=== PATIENT | female | born 1940 | race Caucasian/White ===

== ENCOUNTER 2017-02-11 13:00 | Inpatient (IN) | payer MEDICARE ==
[2017-02-18] MEDS ORDERED: Vancomycin HCl 1.5 GM in Sodium Chloride 0.9% 250 ML 300 ML IVPB SCH (06:00)
[2017-02-18] MEDS ORDERED: Fentanyl 100 MCG/2 ML VIAL ONE ×2 (06:28→09:17)
[2017-02-18] MEDS ORDERED: Lidocaine 1% (PF) 30 ML VIAL ONE (06:28)
[2017-02-18] MEDS ORDERED: Midazolam HCl 2 mg/2 ml Vial ONE (06:28)
[2017-02-18] MEDS ORDERED: Bupivacaine HCl 0.5%/Epinephrine 1:200,000/PF 30 ml Vial ONE (06:34)
[2017-02-18] MEDS ORDERED: MONTELUKAST SODIUM 10 MG PO PRN (06:53)
[2017-02-18] MEDS ORDERED: Allopurinol 100 MG TAB PO PRN (06:53)
[2017-02-18] MEDS ORDERED: Promethazine HCl 25 MG/ML VIAL IM PRN ×3 (06:54→09:03)
[2017-02-18] MEDS ORDERED: diphenhydrAMINE HCl 25 MG CAP PO PRN (06:54)
[2017-02-18] MEDS ORDERED: traMADol HCl 50 MG TAB PO PRN ×3 (06:54→07:00)
[2017-02-18] MEDS ORDERED: Fentanyl 100 MCG/2 ML VIAL SLOW IVP PRN ×2 (06:54)
[2017-02-18] MEDS ORDERED: Ondansetron HCl/PF 4 MG/2 ML Vial IVP PRN ×3 (06:54→09:03)
[2017-02-18] MEDS ORDERED: Acetaminophen 325 MG TAB PO PRN (06:54)
[2017-02-18] MEDS ORDERED: HYDROcodone/Acetaminophen 10/325 mg Tablet PO PRN ×3 (06:54→07:00)
[2017-02-18] MEDS ORDERED: Zolpidem Tartrate 5 MG TAB PO PRN ×2 (06:54→07:00)
[2017-02-18] MEDS ORDERED: Fentanyl 100 MCG/2 ML VIAL IV PRN (07:00)
[2017-02-18] MEDS ORDERED: Tranexamic Acid 1,000 MG in Sodium Chloride 0.9% 100 ML IVPB SCH (07:00)
[2017-02-18] MEDS ORDERED: Ropivacaine 0.2% 550 ML 550 ML NERVE BLCK SCH (07:00)
[2017-02-18] MEDS ORDERED: Montelukast Sodium 10 mg Tablet PO PRN (07:07)
[2017-02-18] MEDS ORDERED: Sodium Chloride 0.9% 100 ML ONE (08:24)
[2017-02-18] MEDS ORDERED: Dexamethasone 20 MG/5 ML VIAL ONE (08:24)
[2017-02-18] MEDS ORDERED: Ondansetron HCl/PF 4 MG/2 ML Vial ONE (08:24)
[2017-02-18] MEDS ORDERED: Ketorolac Tromethamine 30 MG/ML VIAL ONE (08:54)
[2017-02-18] MEDS ORDERED: Non-Formulary Item 1 EACH (Ranitidine Hcl [Ranitidine Hcl] 150 MG) PO SCH (09:00)
[2017-02-18] MEDS ORDERED: Bisoprolol Fumarate/HCTZ 10 mg/6.25 mg Tablet PO SCH (09:00)
[2017-02-18] MEDS ORDERED: AMLOD PO SCH (09:00)
[2017-02-18] MEDS ORDERED: [UNRECOGNIZED DRUG - OTHER] PO SCH (09:00)
[2017-02-18] MEDS ORDERED: Promethazine HCl 25 MG/ML VIAL SLOW IVP PRN (09:03)
[2017-02-18] MEDS: Aspirin 325 MG TAB PO SCH ×2 (09:35→20:58)
[2017-02-18] MEDS: Famotidine 20 MG TAB PO SCH (09:35)
[2017-02-18] MEDS: Ferrous Gluconate 324 MG TAB PO SCH ×2 (10:14→20:58)
[2017-02-18] MEDS: Multivitamin W/ Minerals 1 TAB PO SCH (10:14)
[2017-02-18] MEDS: Senokot S 8.6-50 MG TAB PO SCH ×2 (10:14→20:58)
--- NOTE | 2017-02-18 10:36 | RAD ---
TWO VIEWS LEFT KNEE: Comparison: None. History: Status post left knee arthroplasty. FINDINGS: Two views of the left knee shows the patient to be status post left knee arthroplasty without periha rdware lucency of fracture. Air in the soft tissues is from recent surgery. IMPRESSION: Status post left knee arthroplasty without evidence of complication. POS: [facility]
--- NOTE | 2017-02-18 11:25 | OP ---
DATE OF PROCEDURE: 02/18/2017 PREOPERATIVE DIAGNOSIS: End-stage tricompartmental osteoarthritis, left knee. POSTOPERATIVE DIAGNOSIS: End-stage tricompartmental osteoarthritis, left knee. OPERATIVE PROCEDURE: Cemented cruciate-sparing computer-assisted navigation left total knee arthrop lasty. SURGEON: Burt Crain M.D. ADVANCED MANUFACTURING ENGINEER: Herve Figueroa PA-C. ANESTHESIA: General via laryngeal mask airway augmented with indwelling adductor canal block with a single shot sciatic block and local infiltration of Marcaine. COMPONENTS USED: [employer] Triathlon primary size 3 cemented cruciate-sparing femoral com ponent, size 3 primary cemented tibial component, 11 mm polyethylene fixed bearing insert, and a 27 mm patellar button. TOURNIQUET TIME: 51 minutes at 300 mmHg. ESTIMATED BLOOD LOSS: Less than 100. FINDINGS: End-stage severe degenerative tricompartmental disease, bone on bone arthrosis, periartic ular osteophyte formation, large serous effusion, hypertrophic synovium, and changes consistent with degenerative genu varum. DRAINS: None. SPECIMENS: None. COMPLICATIONS: None. COUNTS: Correct. INDICATIONS FOR SURGERY: Ms. Leonard is a 76-year-old white female who has had progressive left knee pain amplified with standing and walking for the last 5-7 years. She has failed conservative manage ment and elected to proceed with total knee arthroplasty as definitive treatment of her pain. PROCEDURE IN DETAIL: After informed consent was obtained in the preoperative holding area. The pat ient was taken to the operative suite where general anesthesia was induced. Once adequate level of general anesthesia was obtained, the patient was positioned and a well-padded tourniquet was placed around the left proximal thigh. The left lower extremity was then prepped and draped in the usual s terile fashion. Prior to exsanguination, a time out was called and all members of the surgical team agreed upon site, surgeon, and patient. The extremity was then exsanguinated and the tourniquet wa s raised. A midline longitudinal incision was then made directly over the patella extending two fin gerbreadths above the superior pole of the patella and two fingerbreadths inferior to the inferior p atellar pole of the patella. Deeper subcutaneous layers were dissected sharply and local bleeding w as controlled with Bovie electrocautery. A quad tendon longitudinal split was then made sharply and a median parapatellar arthrotomy was carried out both sharp and with Bovie electrocautery, carried down to one fingerbreadth medial to the tibial tubercle. The knee was then placed into flexion and the patella was everted nicely, and a copious fat pad ectomy was performed allowing for greater expo sure of the tibia. The computer-assisted distal femoral fiducial was then placed and pinned firmly, and the distal femoral cutting guide was pinned firmly into place. The oscillating saw was then us ed to remove the appropriate amount of bone. The 4-in-1 cutting block was then placed on the distal femur and the oscillating saw was used to remove the appropriate amount of bone off of the anterior , posterior, and chamfer cuts. After completion of bone cuts, the anterior cruciate ligament was re sected sharply and the posterior cruciate ligament retractor was placed and the tibia was subluxed f or better exposure. Partial meniscectomies were carried out, and the tibial computer-assisted fiduc ial was pinned, and the cutting guide was placed. Oscillating saw was then used to remove the bone with Hohmann retractors used to take care and protect the collateral ligaments. After the tibial re section was performed, a laminar television script writer was placed in between the freshened bone cuts. The knee p laced at 90 degrees and further bilateral meniscectomies were carried out, and the curved osteotome and curettage was used to remove any excess bone spurs in the posterior compartment. The trial femo ral component, tibial baseplate were placed with the appropriate polyethylene trial insert with an a ppropriate polyethylene spacer and patellar button. The knee was taken through full range of motion with flexion and extension from 0-90 degrees and patellar broach squarely in the trochlea without a ny squinting or subluxation noted. The knee was also stable to varus and valgus stressing at 0, 15, 45, and 90 degrees of flexion. The drawer was negative. All trial components were then removed an d the keel punch was used to provide the appropriate defect in the tibia with a mallet. The freshen ed bone cuts were copiously irrigated with pulsatile lavage of about 1-1/2 liters to remove all exce ss debris. The freshened bone cuts were then dried and with suction and lap sponge. The knee was p laced in flexion and retractors were placed to provide access to all bone cuts. Tobramycin impregna barb methyl methacrylate cement was then placed on the freshened bone cuts and implants which were ma lleted firmly into place. Curettage and Tingley elevators were used to remove any excess bone cement. The knee was placed into full extension and the patellar button was placed under compression, and the cement was allowed to cure. Once completed, the components were again taken through full range of motion and copious irrigation of the knee was carried out with another liter of normal saline. A ll components were inspected fully with full range of motion and varus and valgus stressing. There was no laxity noted and full extension was observed clinically. Primary closure was accomplished wi th #2 interrupted Vicryl stitch of the arthrotomy defect. This was oversewn with a #2 running Quill barbed stitch. The subcutaneous layer was then closed with a running 0 barbed Monocryl stitch and skin closure accomplished with a running subcuticular 3-0 Monocryl barbed Quill stitch and augmented with cement on the skin. Tourniquet was lowered. Good spontaneous return of distal pulses was not ed clinically and a sterile dressing was applied to the incision. The procedure was terminated with out any complications. The patient was awakened in the operative suite and taken to the recovery ro om in stable condition.
[2017-02-18] MEDS: Bisoprolol Fumarate/HCTZ 10 mg/6.25 mg Tablet PO SCH (13:59)
[2017-02-18] MEDS ORDERED: Ketorolac Tromethamine 30 MG/ML VIAL IM SCH (14:00)
--- NOTE | 2017-02-18 14:30 | PDOC.PN ---
- Subjective Encounter Start Date: 02/18/17 Encounter Start Time: 14:00 Pt seen for management of medical comorbidities, including hypertension. Denies chest pain, shortness of breath, fevers or chills. - Objective MAR Reviewed: Yes Vital Signs & Weight: Vital Signs (12 hours) Temp Pulse Resp BP Pulse Ox 02/18/17 09:35 97.5 F L 67 18 131/76 98 Weight Weight 200 lb Phys Exam - Physical Examination Obese HEENT: moist MMs, oral pharynx no lesions Neck: supple, full ROM Respiratory: no wheezing, no rales, no rhonchi, clear to auscultation bilateral Cardiovascular: RRR, no rub Gastrointestinal: soft, positive bowel sounds Musculoskeletal: pulses present s/p L knee surgery Neurological: moves all 4 limbs Psychiatric: normal affect Skin: no rash Dx/Plan (1) Hypertension Code(s): I10 - ESSENTIAL (PRIMARY) HYPERTENSION Status: Chronic (2) Dyslipidemia Code(s): E78.5 - HYPERLIPIDEMIA, UNSPECIFIED Status: Chronic (3) Gout Code(s): M10.9 - GOUT, UNSPECIFIED Status: Chronic - Plan * . Monitor vital signs, titrate antihypertensives as needed. Continue statin. Gout stable. s/p L TKR DVT prophylaxis and pain management per orthopedic surgery service. Code status: Full Review of Systems - Review of Systems Respiratory: negative: Cough, Dry, Shortness of Breath, Hemoptysis, SOB with Excertion, Pleuritic Pain, Sputum, Wheezing Cardiovascular: negative: Chest Pain, Palpitations, Orthopnea, Paroxysmal Noc. Dyspnea, Edema, Light Headedness Gastrointestinal: negative: Nausea, Vomiting, Abdominal Pain, Diarrhea, Constipation, Melena, Hematochezia - Medications/Allergies Allergies/Adverse Reactions: Allergies Allergy/AdvReac Type Severity Reaction Status Date / Time Sulfa (Sulfonamide Allergy Hives Verified 02/11/17 14:18 Antibiotics) Medications: Current Medications Acetaminophen (Tylenol) 650 mg PO Q4H PRN PRN Reason: [place]/ T > 101F; Mild Pain (1-3) Hydrocodone Bitart/Acetaminophen ([place] 10/325) 1 tab PO Q4H PRN PRN Reason: Pain (1-3) Hydrocodone Bitart/Acetaminophen ([place] 10/325) 2 tab PO Q4H PRN PRN Reason: PAIN (4-6) Allopurinol (Zyloprim) 100 mg PO ASDIR PRN PRN Reason: GOUT Aspirin (Aspirin) 325 mg PO BID [facility] Last Admin: 02/18/17 09:35 Dose: Not Given Atorvastatin Calcium (Lipitor) 20 mg PO HS [facility] Bisoprolol Fumarate/HCTZ (Ziac 10-6.25) 0.5 tab PO QAM [facility] Last Admin: 02/18/17 13:59 Dose: Not Given Cefazolin Sodium (Ancef) 2 gm SLOW IVP 1500,2300 [facility] Stop: 02/18/17 23:01 Diphenhydramine HCl (Benadryl) 25 mg PO Q6H PRN PRN Reason: Itching Doxazosin Mesylate (Cardura) 4 mg PO HS [facility] Famotidine (Pepcid) 20 mg PO QAM [facility] Last Admin: 02/18/17 09:35 Dose: Not Given Fentanyl (Sublimaze) 50 mcg IV Q1H PRN PRN Reason: BREAKTHROUGH PAIN Last Admin: 02/18/17 12:12 Dose: 50 mcg Ferrous Gluconate (Fergon) 324 mg PO BID [facility] Last Admin: 02/18/17 10:14 Dose: Not Given Sodium Chloride (Normal Saline 0.9%) 1,000 mls @ 100 mls/hr IV .Q10H [facility] Tranexamic Acid 1,000 mg/ (Sodium Chloride) 110 mls @ 200 mls/hr IVPB ONE [facility] Stop: 02/18/17 21:00 Ropivacaine (Ropivacaine 0.2% 550 Ml) 550 mls @ 0 mls/hr NERVE BLCK INF [facility] PRN Reason: As Directed Iron/Minerals/Multivitamins (Theragran M) 1 tab PO DAILY [facility] Last Admin: 02/18/17 10:14 Dose: Not Given Ketorolac Tromethamine (Toradol) 15 mg IVP 0300,0900,1500,2100 [facility] Stop: 02/20/17 09:01 Montelukast Sodium (Singulair) 10 mg PO ASDIR PRN PRN Reason: Allergies Ondansetron HCl (Zofran) 4 mg IVP Q6H PRN PRN Reason: Nausea/Vomiting Pneumococcal Polyvalent Vaccine (Pneumovax 23) 0.5 ml IM .ONCE ONE Stop: 02/18/17 21:01 Promethazine HCl (Phenergan) 12.5 mg IM Q4H PRN PRN Reason: Nausea Senna/Docusate Sodium (Senokot S) 2 tab PO BID [facility] Last Admin: 02/18/17 10:14 Dose: Not Given Sodium Chloride (Flush - Normal Saline) 10 ml IVF PRN PRN PRN Reason: Saline Flush Tramadol HCl (Ultram) 50 mg PO Q6H PRN PRN Reason: Mild Pain (1-3) Tramadol HCl (Ultram) 100 mg PO Q6H PRN PRN Reason: Moderate Pain 4-6 Zolpidem Tartrate (Ambien) 5 mg PO HSPRN PRN PRN Reason: Insomnia
[2017-02-18] MEDS: Ketorolac Tromethamine 30 MG/ML VIAL IVP SCH ×2 (15:09→21:07)
[2017-02-18] MEDS: Sodium Chloride 0.9% 1,000 ML IV SCH ×2 (15:16→17:14)
[2017-02-18] MEDS: Atorvastatin Calcium 20 MG TAB PO SCH (20:57)
[2017-02-18] MEDS ORDERED: Doxazosin Mesylate 4 MG TAB PO SCH (21:00)
[2017-02-18] MEDS: Doxazosin Mesylate 4 MG TAB PO SCH (21:12)
[2017-02-19] MEDS: Sodium Chloride 0.9% 1,000 ML IV SCH ×3 (02:51→21:03)
[2017-02-19] MEDS: Ketorolac Tromethamine 30 MG/ML VIAL IVP SCH ×4 (04:01→16:35)
[2017-02-19 05:57] LABS: Hematocrit 35.3 % (36.0-47.0); Mean Platelet Volume 8.3 fL (7.4-10.4); White Blood Cell (WBC) Count 23.8 thou/uL (4.8-10.8)
[2017-02-19] MEDS: HYDROcodone/Acetaminophen 10/325 mg Tablet PO PRN ×3 (09:02→19:23)
[2017-02-19] MEDS: Ferrous Gluconate 324 MG TAB PO SCH ×2 (09:04→20:06)
[2017-02-19] MEDS: Multivitamin W/ Minerals 1 TAB PO SCH (09:05)
[2017-02-19] MEDS: Bisoprolol Fumarate/HCTZ 10 mg/6.25 mg Tablet PO SCH (09:05)
[2017-02-19] MEDS: Famotidine 20 MG TAB PO SCH (09:07)
[2017-02-19] MEDS: Aspirin 325 MG TAB PO SCH ×2 (09:07→20:06)
[2017-02-19] MEDS: Senokot S 8.6-50 MG TAB PO SCH ×2 (09:08→20:07)
--- NOTE | 2017-02-19 14:19 | PDOC.PN ---
- Subjective Encounter Start Date: 02/19/17 Encounter Start Time: 09:20 Pt seen for followup re; hypertension. Denies chest pain, shortness of breath, fevers or chills. No nausea or vomiting. No cough. Has gan catheter, denies dysuria or urge to urinate. - Objective MAR Reviewed: Yes Vital Signs & Weight: Vital Signs (12 hours) Temp Pulse Resp BP BP Pulse Ox 02/19/17 11:25 97.1 F L 56 L 14 130/58 L 93 L 02/19/17 08:00 97.1 F L 56 L 14 96 02/19/17 07:33 97.5 F L 62 18 126/74 96 02/19/17 04:52 97.4 F L 71 18 146/72 H 92 L Weight Admit Weight 200 lb Weight 200 lb I&O: 02/18/17 02/19/17 02/20/17 06:59 06:59 06:59 Intake Total 3106 Output Total 2450 Balance 656 Result Diagrams: 02/19/17 05:07 Phys Exam - Physical Examination Constitutional: NAD HEENT: moist MMs, oral pharynx no lesions Neck: supple, full ROM Respiratory: no wheezing, no rales, no rhonchi, clear to auscultation bilateral Cardiovascular: RRR, no rub Gastrointestinal: soft, positive bowel sounds Musculoskeletal: pulses present s/p L knee surgery Neurological: moves all 4 limbs Psychiatric: normal affect Dx/Plan (1) Hypertension Code(s): I10 - ESSENTIAL (PRIMARY) HYPERTENSION Status: Chronic (2) Dyslipidemia Code(s): E78.5 - HYPERLIPIDEMIA, UNSPECIFIED Status: Chronic (3) Gout Code(s): M10.9 - GOUT, UNSPECIFIED Status: Chronic - Plan * . Leucocytosis, but no signs of infection. Continue to monitor. Recheck CBC. Titrate antihypertensives as needed. Continue statin. Review of Systems - Review of Systems Constitutional: negative: Fever, Chills, Sweats, Weakness, Malaise Respiratory: negative: Cough, Dry, Shortness of Breath, Hemoptysis, SOB with Excertion, Pleuritic Pain, Sputum, Wheezing Cardiovascular: negative: Chest Pain, Palpitations, Orthopnea, Paroxysmal Noc. Dyspnea, Edema, Light Headedness, Other Genitourinary: negative: Dysuria, Frequency, Incontinence, Hematuria, Retention - Medications/Allergies Allergies/Adverse Reactions: Allergies Allergy/AdvReac Type Severity Reaction Status Date / Time Sulfa (Sulfonamide Allergy Hives Verified 02/11/17 14:18 Antibiotics) Medications: Current Medications Acetaminophen (Tylenol) 650 mg PO Q4H PRN PRN Reason: [place]/ T > 101F; Mild Pain (1-3) Hydrocodone Bitart/Acetaminophen ([place] 10/325) 1 tab PO Q4H PRN PRN Reason: Pain (1-3) Last Admin: 02/19/17 04:56 Dose: 1 tab Hydrocodone Bitart/Acetaminophen ([place] 10/325) 2 tab PO Q4H PRN PRN Reason: PAIN (4-6) Last Admin: 02/19/17 13:02 Dose: 2 tab Allopurinol (Zyloprim) 100 mg PO ASDIR PRN PRN Reason: GOUT Aspirin (Aspirin) 325 mg PO BID [facility] Last Admin: 02/19/17 09:07 Dose: 325 mg Atorvastatin Calcium (Lipitor) 20 mg PO [facility] Last Admin: 02/18/17 20:57 Dose: 20 mg Bisoprolol Fumarate/HCTZ (Ziac 10-6.25) 0.5 tab PO QAM [facility] Last Admin: 02/19/17 09:05 Dose: 0.5 tab Diphenhydramine HCl (Benadryl) 25 mg PO Q6H PRN PRN Reason: Itching Doxazosin Mesylate (Cardura) 4 mg PO [facility] Last Admin: 02/18/17 21:12 Dose: 4 mg Famotidine (Pepcid) 20 mg PO QAM [facility] Last Admin: 02/19/17 09:07 Dose: 20 mg Fentanyl (Sublimaze) 50 mcg IV Q1H PRN PRN Reason: BREAKTHROUGH PAIN Last Admin: 02/18/17 12:12 Dose: 50 mcg Ferrous Gluconate (Fergon) 324 mg PO BID [facility] Last Admin: 02/19/17 09:04 Dose: 324 mg Sodium Chloride (Normal Saline 0.9%) 1,000 mls @ 100 mls/hr IV .Q10H [facility] Last Admin: 02/19/17 13:08 Dose: Not Given Ropivacaine (Ropivacaine 0.2% 550 Ml) 550 mls @ 0 mls/hr NERVE BLCK INF [facility] PRN Reason: As Directed Iron/Minerals/Multivitamins (Theragran M) 1 tab PO DAILY [facility] Last Admin: 02/19/17 09:05 Dose: 1 tab Ketorolac Tromethamine (Toradol) 15 mg IVP 0300,0900,1500,2100 [facility] Stop: 02/20/17 09:01 Last Admin: 02/19/17 09:09 Dose: 15 mg Montelukast Sodium (Singulair) 10 mg PO [facility] PRN PRN Reason: Allergies Ondansetron HCl (Zofran) 4 mg IVP Q6H PRN PRN Reason: Nausea/Vomiting Promethazine HCl (Phenergan) 12.5 mg IM Q4H PRN PRN Reason: Nausea Senna/Docusate Sodium (Senokot S) 2 tab PO BID [facility] Last Admin: 02/19/17 09:08 Dose: 2 tab Sodium Chloride (Flush - Normal Saline) 10 ml IVF PRN PRN PRN Reason: Saline Flush Tramadol HCl (Ultram) 50 mg PO Q6H PRN PRN Reason: Mild Pain (1-3) Tramadol HCl (Ultram) 100 mg PO Q6H PRN PRN Reason: Moderate Pain 4-6 Last Admin: 02/19/17 13:49 Dose: 100 mg Zolpidem Tartrate (Ambien) 5 mg PO HSPRN PRN PRN Reason: Insomnia
[2017-02-19] MEDS: Atorvastatin Calcium 20 MG TAB PO SCH (20:07)
[2017-02-19] MEDS: Doxazosin Mesylate 4 MG TAB PO SCH (20:12)
[2017-02-20] MEDS: Ketorolac Tromethamine 30 MG/ML VIAL IVP SCH ×3 (01:56→08:30)
[2017-02-20] MEDS: HYDROcodone/Acetaminophen 10/325 mg Tablet PO PRN ×3 (02:40→13:57)
[2017-02-20 05:17] LABS: Hematocrit 33.6 % (36.0-47.0); Mean Platelet Volume 7.8 fL (7.4-10.4); White Blood Cell (WBC) Count 16.1 thou/uL (4.8-10.8)
[2017-02-20] MEDS: Senokot S 8.6-50 MG TAB PO SCH (08:41)
[2017-02-20] MEDS: Bisoprolol Fumarate/HCTZ 10 mg/6.25 mg Tablet PO SCH (08:41)
[2017-02-20] MEDS: Multivitamin W/ Minerals 1 TAB PO SCH (08:41)
[2017-02-20] MEDS: Aspirin 325 MG TAB PO SCH (08:42)
[2017-02-20] MEDS: Ferrous Gluconate 324 MG TAB PO SCH (08:42)
[2017-02-20] MEDS: Famotidine 20 MG TAB PO SCH (08:42)
[2017-02-20] MEDS: Sodium Chloride 0.9% 1,000 ML IV SCH (09:25)
[2017-02-20 11:59] VITALS: BP 166/67; TEMP 97.3
--- NOTE | 2017-02-20 13:21 | PDOC.PN ---
- Subjective Encounter Start Date: 02/20/17 Encounter Start Time: 08:40 Pt seen for followup re: hypertension. Denies chest pain, shortness of breath, fevers or chills. - Objective MAR Reviewed: Yes Vital Signs & Weight: Vital Signs (12 hours) Temp Pulse Resp BP BP Pulse Ox 02/20/17 11:00 97.3 F L 62 16 166/67 H 95 02/20/17 07:45 97.7 F 67 16 144/67 H 93 L 02/20/17 04:29 97.7 F 63 16 128/71 91 L Weight Admit Weight 200 lb Weight 200 lb I&O: 02/19/17 02/20/17 02/21/17 06:59 06:59 06:59 Intake Total 3106 1170 Output Total 2450 1050 Balance 656 120 Result Diagrams: 02/20/17 04:31 Phys Exam - Physical Examination Obese HEENT: moist MMs Neck: supple Respiratory: no wheezing, no rales, no rhonchi, clear to auscultation bilateral Cardiovascular: RRR Gastrointestinal: soft, positive bowel sounds s/p L knee surgery Neurological: moves all 4 limbs Psychiatric: normal affect Dx/Plan (1) Hypertension Code(s): I10 - ESSENTIAL (PRIMARY) HYPERTENSION Status: Chronic (2) Dyslipidemia Code(s): E78.5 - HYPERLIPIDEMIA, UNSPECIFIED Status: Chronic (3) Gout Code(s): M10.9 - GOUT, UNSPECIFIED Status: Chronic - Plan * . Leucocytosis improving. No fevers. Monitor vital signs, titrate antihypertensives as needed. Plan to discharge patient noted, will sign off. Review of Systems - Review of Systems Constitutional: negative: Fever, Chills, Sweats, Weakness, Malaise Respiratory: negative: Cough, Dry, Shortness of Breath, Hemoptysis, SOB with Excertion, Sputum, Wheezing Cardiovascular: negative: Chest Pain, Palpitations, Orthopnea, Paroxysmal Noc. Dyspnea - Medications/Allergies Allergies/Adverse Reactions: Allergies Allergy/AdvReac Type Severity Reaction Status Date / Time Sulfa (Sulfonamide Allergy Hives Verified 02/11/17 14:18 Antibiotics) Medications: Current Medications Acetaminophen (Tylenol) 650 mg PO Q4H PRN PRN Reason: [place]/ T > 101F; Mild Pain (1-3) Hydrocodone Bitart/Acetaminophen ([place] 10/325) 1 tab PO Q4H PRN PRN Reason: Pain (1-3) Last Admin: 02/19/17 04:56 Dose: 1 tab Hydrocodone Bitart/Acetaminophen ([place] 10/325) 2 tab PO Q4H PRN PRN Reason: PAIN (4-6) Last Admin: 02/20/17 06:55 Dose: 2 tab Allopurinol (Zyloprim) 100 mg PO ASDIR PRN PRN Reason: GOUT Aspirin (Aspirin) 325 mg PO BID [facility] Last Admin: 02/20/17 08:42 Dose: 325 mg Atorvastatin Calcium (Lipitor) 20 mg PO HS [facility] Last Admin: 02/19/17 20:07 Dose: 20 mg Bisoprolol Fumarate/HCTZ ([place] 10-6.25) 0.5 tab PO QAM [facility] Last Admin: 02/20/17 08:41 Dose: 0.5 tab Diphenhydramine HCl (Benadryl) 25 mg PO Q6H PRN PRN Reason: Itching Doxazosin Mesylate (Cardura) 4 mg PO [facility] Last Admin: 02/19/17 20:12 Dose: 4 mg [facility]amotidine ([facility]epcid) [facility] Last Admin: 02/20/17 08:42 Dose: 20 mg Fentanyl (Sublimaze) 50 mcg IV Q1H PRN PRN Reason: BREAKTHROUGH PAIN Last Admin: 02/18/17 12:12 Dose: 50 mcg Ferrous Gluconate (Fergon) 324 mg PO BID [facility] Last Admin: 02/20/17 08:42 Dose: 324 mg Sodium Chloride (Normal Saline 0.9%) 1,000 mls @ 100 mls/hr IV .Q10H [facility] Last Admin: 02/20/17 09:25 Dose: Not Given Ropivacaine (Ropivacaine 0.2% 550 Ml) 550 mls @ 0 mls/hr NERVE BLCK INF [facility] PRN Reason: As Directed Iron/Minerals/Multivitamins (Theragran M) 1 tab PO DAILY [facility] Last Admin: 02/20/17 08:41 Dose: 1 tab Montelukast Sodium (Singulair) 10 mg PO ASD[facility] PRN PRN Reason: Allergies Ondansetron HCl (Zofran) 4 mg IVP Q6H PRN PRN Reason: Nausea/Vomiting Last Admin: 02/20/17 08:21 Dose: 4 mg Promethazine HCl (Phenergan) 12.5 mg IM Q4H PRN PRN Reason: Nausea Senna/Docusate Sodium (Senokot S) 2 tab PO BID [facility] Last Admin: 02/20/17 08:41 Dose: 2 tab Sodium Chloride (Flush - Normal Saline) 10 ml IVF PRN PRN PRN Reason: Saline Flush Last Admin: 02/20/17 08:34 Dose: 10 ml Tramadol HCl (Ultram) 50 mg PO Q6H PRN PRN Reason: Mild Pain (1-3) Tramadol HCl (Ultram) 100 mg PO Q6H PRN PRN Reason: Moderate Pain 4-6 Last Admin: 02/19/17 13:49 Dose: 100 mg Zolpidem Tartrate (Ambien) 5 mg PO HSPRN PRN PRN Reason: Insomnia
[2017-02-20 18:08] VITALS: BMI 37.8
== END 2017-02-20 15:44 | disposition home or self-care (01) | DRG 470 ==
LOC: SURG A 02-18 05:27 → SURG B 02-18 09:26
PROVIDERS: ADMIT Orthopaedic Surgery; ATTEND Orthopaedic Surgery
PROC: 0SRD0J9 Replacement of Left Knee Joint with Synthetic Substitute, Cemented, Open Approach (ICD-10-PCS; principal; 2017-02-18)
PROC: 8E0YXBZ Computer Assisted Procedure of Lower Extremity (ICD-10-PCS; 2017-02-18)
PROC: 3E0T3CZ (ICD-10-PCS; 2017-02-18)
DX: M17.0 Bilateral primary osteoarthritis of knee (principal); I10 Essential (primary) hypertension; E78.5 Hyperlipidemia, unspecified; M10.9 Gout, unspecified; R12 Heartburn; E66.9 Obesity, unspecified; Z68.39 Body mass index [BMI] 39.0-39.9, adult
CPT/HCPCS: 36415; 85027; 90471; 90732; A4306; C1713; C1776; G0009; G8978-GP-CK; G8979-GP-CI; J0670; J1100; J1885; J2001; J2250; J2405; J2795; J3010; J3370; J7050

== ENCOUNTER 2018-03-09 09:34 | Outpatient (CLI) | payer MEDICARE ==
[2018-03-09 11:29] LABS: Bilirubin Negative (Negative); Blood, Urine Negative (Negative); Clarity CLOUDY (Clear); Glucose, Urine (Dipstick) Negative (Negative); Leukocyte Small (Negative); Nitrite Negative (Negative); Protein, Urine (Dipstick) Negative (Neg-Trace); Urobilinogen 0.2 mg/dL (0.2-1.0); pH, Urine 6.5 (5.0-9.0)
[2018-03-09 11:31] LABS: #Basophils 0.1 thou/uL (0.0-0.2); #Eosinphils 0.4 thou/uL (0.0-0.7); #Monocytes 0.9 thou/uL (0.11-0.59); #Neutrophils 8.5 thou/uL (1.40-6.50); %Basophils 0.4 % (0.0-1.0); %Eosinophils 2.9 % (0.0-10.0); %Monocytes 7.3 % (0.0-10.0); %Neutrophils 66.3 % (42.0-75.0); Hemoglobin 12.9 g/dL (12.0-16.0); Mean Corpuscular HGB CONC 32.9 g/dL (32.0-36.0); Mean Corpuscular Volume 91.1 fL (78.0-98.0); Mean Platelet Volume 8.2 fL (7.4-10.4); Platelet Count 290 thou/uL (130-400); RBC Distribution Width 12.2 % (11.5-14.5); Red Blood Cell (RBC) Count 4.29 mill/uL (4.20-5.40); White Blood Cell (WBC) Count 12.8 thou/uL (4.8-10.8)
--- NOTE | 2018-03-09 11:31 | RAD ---
PA AND LATERAL CHEST: History: Pre op. Comparison: 02-11-17 FINDINGS: Heart size is upper limits of normal with atherosclerotic changes of the aorta. Lungs are clear of in filtrates. IMPRESSION: Heart size upper limits of normal. No active intrathoracic disease. POS: [facility]
[2018-03-09 11:35] LABS: Bacteria/HPF 4+ HPF (None Seen); Hyaline Casts/LPF 0-3 HYALINE CAST LPF (0-3 Hyaline); Pathc Cast-AUWi Flag 0.29 (0-2.49)
[2018-03-09 11:35] LABS: PTT 30.8 SEC (22.9-36.1)
[2018-03-09 11:37] LABS: RBC/HPF 0-3 HPF (0-3)
[2018-03-09 11:59] LABS: Anion Gap 13 mmol/L (10-20); BUN (Urea Nitrogen) 18 mg/dL (9.8-20.1); Calc. Creatinine Clearance 0 mL/min (70-130); Calcium 9.4 mg/dL (7.8-10.44); Carbon Dioxide 27 mmol/L (23-31); Chloride 104 mmol/L (98-107); Estimated GFR-MDRD 74; Glucose 108 mg/dL (83-110); Potassium 4.5 mmol/L (3.5-5.1); Sodium 139 mmol/L (136-145)
--- NOTE | 2018-03-10 09:37 | EKG ---
Test Reason : Blood Pressure : / mmHG Vent. Rate : 066 BPM Atrial Rate : 066 BPM P-R Int : 202 ms QRS Dur : 082 ms QT Int : 432 ms P-R-T Axes : 076 006 029 degrees QTc Int : 452 ms Normal sinus rhythm Low voltage QRS Borderline ECG When compared with ECG of 11-FEB-2017 14:36, No significant change was found Confirmed by ROYAL WATSON ([id number]) on 03/10/2018 9:37:25 AM Referred By: MAHIN Confirmed By:ROYAL WATSON
== END 2018-03-09 09:35 | disposition home or self-care (01) ==
LOC: LABBT 09:34
PROVIDERS: ATTEND Orthopaedic Surgery
DX: Z01.818 Encounter for other preprocedural examination (principal); M17.11 Unilateral primary osteoarthritis, right knee
CPT/HCPCS: 71046; 80048; 81001; 85025; 85610; 85730; 86850; 86900; 86901; 93005; 93010

== ENCOUNTER 2018-03-10 07:32 | Inpatient (IN) | payer MEDICARE ==
[2018-03-09 10:06] VITALS: BMI 39.0
[2018-03-10] MEDS ORDERED: Sodium Chloride 0.9% 100 ML ONE (08:37)
[2018-03-10] MEDS ORDERED: CEFAZOLIN/Water 2 GM/20 ML SYRINGE ONE (08:37)
[2018-03-10] MEDS ORDERED: HYDROcodone/Acetaminophen 10/325 mg Tablet PO PRN ×2 (08:52)
[2018-03-10] MEDS ORDERED: Ondansetron HCl/PF 4 MG/2 ML Vial IVP PRN ×2 (08:52→13:38)
[2018-03-10] MEDS ORDERED: Zolpidem Tartrate 5 MG TAB PO PRN ×2 (08:52→10:14)
[2018-03-10] MEDS ORDERED: diphenhydrAMINE 25 MG CAP PO PRN (08:52)
[2018-03-10] MEDS ORDERED: Acetaminophen 325 MG TAB PO PRN (08:52)
[2018-03-10] MEDS ORDERED: traMADol HCl 50 MG TAB PO PRN ×2 (08:52→10:14)
[2018-03-10] MEDS ORDERED: Promethazine HCl 25 MG/ML VIAL IM PRN ×2 (08:52→10:14)
[2018-03-10] MEDS ORDERED: Montelukast Sodium 10 mg Tablet PO PRN (08:53)
[2018-03-10] MEDS ORDERED: Vancomycin HCl 1.5 GM in Sodium Chloride 0.9% 250 ML 300 ML IVPB SCH (09:00)
[2018-03-10] MEDS ORDERED: Aspirin 81 mg Enteric Coated Tablet PO SCH (09:00)
[2018-03-10] MEDS ORDERED: Bisoprolol Fumarate/HCTZ 10 mg/6.25 mg Tablet PO SCH (09:00)
[2018-03-10] MEDS ORDERED: Midazolam HCl 2 mg/2 ml Vial ONE (09:44)
[2018-03-10] MEDS ORDERED: Fentanyl 100 MCG/2 ML VIAL ONE ×4 (09:44→13:30)
[2018-03-10] MEDS ORDERED: Ketorolac Tromethamine 30 MG/ML VIAL IVP PRN ×2 (10:14→13:38)
[2018-03-10] MEDS ORDERED: Ropivacaine HCl/PF 250 ML in Premix Bag 1 BAG NERVE BLCK SCH (10:14)
[2018-03-10] MEDS ORDERED: Fentanyl 100 MCG/2 ML VIAL IV PRN (10:15)
[2018-03-10] MEDS ORDERED: Promethazine HCl 25 MG/ML VIAL IM/IV PRN (13:38)
[2018-03-10] MEDS ORDERED: Non-Formulary Medication 1 EACH PO PRN (13:38)
[2018-03-10] MEDS ORDERED: Ondansetron HCl/PF 4 MG/2 ML Vial ONE ×2 (13:49→17:05)
--- NOTE | 2018-03-10 14:59 | RAD ---
TWO VIEWS RIGHT KNEE: Date: 03-10-18 Provided Clinical History: Post op. FINDINGS: Post-operative changes of right total knee arthroplasty are demonstrated without evidence for fractur e or other acute osseous abnormality. Post-operative soft tissue gas is seen. IMPRESSION: As above. POS: [facility]
[2018-03-10] MEDS: Aspirin 81 mg Enteric Coated Tablet PO SCH ×2 (15:06→20:40)
[2018-03-10] MEDS: Senokot S 8.6-50 MG TAB PO SCH ×2 (15:06→20:40)
[2018-03-10] MEDS: Sodium Chloride 0.9% 1,000 ML IV SCH ×2 (15:06→18:12)
--- NOTE | 2018-03-10 15:06 | OP ---
PREOPERATIVE DIAGNOSIS: Degenerative joint disease, right knee. POSTOPERATIVE DIAGNOSIS: Degenerative joint disease, right knee. SURGEON: Burt Crain M.D. TAPPER BIT: Billy Morocho PA-C. BLOOD LOSS: Minimal. SPECIMEN: None. DRAINS: None. COMPLICATIONS: None. TITLE OF PROCEDURE: Right total knee arthroplasty using a [place] #3 Triathlon femur, 3 tibia, 9 mm CS X3 polyethylene, and A27 patella. PROCEDURE IN DETAIL: After informed consent was obtained in the preoperative holding area. The yemi ent was taken to the operative suite where general anesthesia was induced. Once adequate level of ge neral anesthesia was obtained, the patient was positioned and a well-padded tourniquet was placed robert und the right proximal thigh. The right lower extremity was then prepped and draped in the usual ceci rile fashion. Prior to exsanguination, a time out was called and all members of the surgical team ag brooke upon site, surgeon, and patient. The extremity was then exsanguinated and the tourniquet was ra ised. A midline longitudinal incision was then made directly over the patella extending two fingerbr eadths above the superior pole of the patella and two fingerbreadths inferior to the inferior patella r pole of the patella. Deeper subcutaneous layers were dissected sharply and local bleeding was cont rolled with Bovie electrocautery. A quad tendon longitudinal split was then made sharply and a media n parapatellar arthrotomy was carried out both sharp and with Bovie electrocautery, carried down to o ne fingerbreadth medial to the tibial tubercle. The knee was then placed into flexion and the patell a was everted nicely, and a copious fat pad ectomy was performed allowing for greater exposure of the tibia. The computer-assisted distal femoral fiducial was then placed and pinned firmly, and the dis jaocb femoral cutting guide was pinned firmly into place. The oscillating saw was then used to remove the appropriate amount of bone. The 4-in-1 cutting block was then placed on the distal femur and the oscillating saw was used to remove the appropriate amount of bone off of the anterior, posterior, an d chamfer cuts. After completion of bone cuts, the anterior cruciate ligament was resected sharply a nd the posterior cruciate ligament retractor was placed and the tibia was subluxed for better exposur e. Partial meniscectomies were carried out, and the tibial computer-assisted fiducial was pinned, an d the cutting guide was placed. Oscillating saw was then used to remove the bone with Hohmann retrac tors used to take care and protect the collateral ligaments. After the tibial resection was performe d, a laminar toolmaker helper was placed in between the freshened bone cuts. The knee placed at 90 degrees a nd further bilateral meniscectomies were carried out, and the curved osteotome and curettage was used to remove any excess bone spurs in the posterior compartment. The trial femoral component, tibial b aseplate were placed with the appropriate polyethylene trial insert with an appropriate polyethylene spacer and patellar button. The knee was taken through full range of motion with flexion and extensi on from 0-90 degrees and patellar broach squarely in the trochlea without any squinting or subluxatio n noted. The knee was also stable to varus and valgus stressing at 0, 15, 45, and 90 degrees of flex ion. The drawer was negative. All trial components were then removed and the keel punch was used to provide the appropriate defect in the tibia with a mallet. The freshened bone cuts were copiously i rrigated with pulsatile lavage of about 1-1/2 liters to remove all excess debris. The freshened bone cuts were then dried and with suction and lap sponge. The knee was placed in flexion and retractors were placed to provide access to all bone cuts. Tobramycin impregnated methyl methacrylate cement w as then placed on the freshened bone cuts and implants which were malleted firmly into place. Curett age and [place] elevators were used to remove any excess bone cement. The knee was placed into full ex tension and the patellar button was placed under compression, and the cement was allowed to cure. On ce completed, the components were again taken through full range of motion and copious irrigation of the knee was carried out with another liter of normal saline. All components were inspected fully wi th full range of motion and varus and valgus stressing. There was no laxity noted and full extension was observed clinically. Primary closure was accomplished with #2 interrupted Vicryl stitch of the arthrotomy defect. This was oversewn with a #2 running Quill barbed stitch. The gravitational plate let system was then injected into the arthrotomy prior to closure. The subcutaneous layer was then c losed with a running 0 barbed Monocryl stitch and skin closure accomplished with a running subcuticul ar 3-0 Monocryl barbed Quill stitch and augmented with cement on the skin. Tourniquet was lowered. Good spontaneous return of distal pulses was noted clinically and a sterile dressing was applied to t he incision. The procedure was terminated without any complications. The patient was awakened in th e operative suite and the tourniquet was removed, and the patient was taken to the recovery room in s table condition.
[2018-03-10] MEDS ORDERED: Ropivacaine 0.5% HCl/PF (150 MG/30 ML VIAL) ONE (16:19)
[2018-03-10] MEDS ORDERED: Ropivacaine 0.2% HCl/PF (40 MG/20 ML VIAL) ONE (16:19)
[2018-03-10] MEDS: HYDROcodone/Acetaminophen 7.5/325 mg Tablet PO PRN ×2 (16:25→20:49)
[2018-03-10] MEDS ORDERED: Dexamethasone 20 MG/5 ML VIAL ONE (17:05)
[2018-03-10] MEDS ORDERED: Lidocaine 1% PF 5 ML VIAL ONE (17:05)
[2018-03-10] MEDS ORDERED: Ketorolac Tromethamine 30 MG/ML VIAL ONE (17:05)
[2018-03-10] MEDS ORDERED: PROPOFOL 200 MG/20 ML VIAL ONE (17:05)
[2018-03-10] MEDS: CEFAZOLIN/Water 2 GM/20 ML SYRINGE SLOW IVP SCH (17:21)
[2018-03-10] MEDS: Doxazosin Mesylate 4 MG TAB PO SCH (20:40)
[2018-03-10] MEDS: Atorvastatin Calcium 20 MG TAB PO SCH (20:40)
[2018-03-10] MEDS ORDERED: Allopurinol 100 MG TAB PO PRN (21:00)
--- NOTE | 2018-03-10 22:02 | PDOC.PN ---
- Subjective Encounter Start Date: 03/10/18 Encounter Start Time: 18:00 Patient seen and examined for med mngt. No CP/SOB/Palpitations. No new complaints. - Objective MAR Reviewed: Yes Vital Signs & Weight: Vital Signs (12 hours) Temp Pulse Resp BP Pulse Ox 03/10/18 21:15 98.3 F 84 16 123/73 90 L 03/10/18 20:38 90 L 03/10/18 14:35 97.6 F 76 18 110/70 94 L Weight Weight 200 lb I&O: 03/09/18 03/10/18 03/11/18 06:59 06:59 06:59 Intake Total 800 Output Total 300 Balance 500 Result Diagrams: 03/11/18 04:37 Additional Labs: Laboratory Tests 03/09/18 11:23 Anion Gap 13 Creatinine 0.76 Estimated GFR (MDRD) 74 EKG Reviewed by me: Yes (SR) Phys Exam - Physical Examination Constitutional: NAD Neck: no JVD Respiratory: no wheezing, no rhonchi Cardiovascular: RRR, no rub Gastrointestinal: soft, non-tender, no distention, positive bowel sounds Musculoskeletal: no edema Neurological: non-focal, moves all 4 limbs Psychiatric: A&O x 3 Dx/Plan - Plan DVT proph w/SCDs IMPRESSION: 1. HTN 2. Obesity BMI 39.1 3. Gout 4. CKD 2 PLAN: Reduce Ziac and Lotrel dose to 1/2 with holding parameters - Will titrate as needed. Cont Allopurinol HH in AM Will follow. Full code. DPOA- spouse. Review of Systems - Review of Systems Respiratory: negative: Cough, Dry, Shortness of Breath, Hemoptysis, SOB with Excertion, Pleuritic Pain, Sputum, Wheezing Cardiovascular: negative: chest pain, palpitations, orthopnea, paroxysmal nocturnal dyspnea, edema, light headedness, other - Medications/Allergies Allergies/Adverse Reactions: Allergies Allergy/AdvReac Type Severity Reaction Status Date / Time Sulfa (Sulfonamide Allergy Hives Verified 03/09/18 10:06 Antibiotics) Medications: Current Medications Acetaminophen (Tylenol) 650 mg PO Q4H PRN PRN Reason: [place]/ T > 101F; Mild Pain (1-3) Hydrocodone Bitart/Acetaminophen ([place] 10/325) 1 tab PO Q4H PRN PRN Reason: Moderate Pain (4-6) Hydrocodone Bitart/Acetaminophen ([place] 10/325) 2 tab PO Q4H PRN PRN Reason: Severe Pain (7-10) Hydrocodone Bitart/Acetaminophen ([place] 7.5/325) 1 tab PO Q4H PRN PRN Reason: Mild Pain (1-3) Last Admin: 03/10/18 20:49 Dose: 1 tab Hydrocodone Bitart/Acetaminophen ([place] 7.5/325) 2 tab PO Q4H PRN PRN Reason: Moderate Pain (4-6) Allopurinol (Zyloprim) 100 mg PO DAILYPRN PRN PRN Reason: GOUT Amlodipine/Benazepril HCl (Lotrel /20) 2 cap PO DAILY [facility] Aspirin (Ecotrin) 81 mg PO BID [facility] Last Admin: 03/10/18 20:40 Dose: 81 mg Atorvastatin Calcium (Lipitor) 20 mg PO HS [facility] Last Admin: 03/10/18 20:40 Dose: 20 mg Bisoprolol Fumarate/HCTZ ([place] 10-6.25) 1 tab PO DAILY [facility] Last Admin: 03/10/18 15:06 Dose: Not Given Cefazolin Sodium (Ancef) 2 gm SLOW IVP 0100,0900,1700 [facility] Stop: 03/11/18 01:01 Last Admin: 03/10/18 17:21 Dose: 2 gm Diphenhydramine HCl (Benadryl) 25 mg PO Q6H PRN PRN Reason: Itching Doxazosin Mesylate (Cardura) 4 mg PO HS [facility] Last Admin: 03/10/18 20:40 Dose: 4 mg Famotidine (Pepcid) 20 mg PO QAM [facility] Fentanyl (Sublimaze) 50 mcg IV Q1H PRN PRN Reason: BREAKTHROUGH PAIN Ferrous Gluconate (Fergon) 324 mg PO BID [facility] Fish Oil (Fish Oil) 1,000 mg PO DAILY [facility] Sodium Chloride (Normal Saline 0.9%) 1,000 mls @ 100 mls/hr IV .Q10H [facility] Last Admin: 03/10/18 18:12 Dose: Not Given Ropivacaine 250 ml/ Device 250 mls @ 0 mls/hr NERVE BLCK INF [facility] Iron/Minerals/Multivitamins (Theragran M) 1 tab PO DAILY [facility] Ketorolac Tromethamine (Toradol) 15 mg IVP Q6H PRN PRN Reason: Moderate Pain (4-6) Stop: 03/13/18 10:15 Montelukast Sodium (Singulair) 10 mg PO DAILYPRN PRN PRN Reason: Allergies Ondansetron HCl (Zofran) 4 mg IVP Q6H PRN PRN Reason: Nausea/Vomiting Ondansetron HCl (Zofran) 4 mg IVP Q6H PRN PRN Reason: Nausea/Vomiting Promethazine HCl (Phenergan) 12.5 mg IM Q4H PRN PRN Reason: Nausea/Vomiting Promethazine HCl (Phenergan) 12.5 mg IM Q4H PRN PRN Reason: Nausea Senna/Docusate Sodium (Senokot S) 2 tab PO BID [facility] Last Admin: 03/10/18 20:40 Dose: 2 tab Sodium Chloride (Flush - Normal Saline) 10 ml IVF PRN PRN PRN Reason: Saline Flush Tramadol HCl (Ultram) 100 mg PO Q6H PRN PRN Reason: Mild Pain (1-3) Tramadol HCl (Ultram) 50 mg PO Q6H PRN PRN Reason: Mild Pain (1-3) Tramadol HCl (Ultram) 100 mg PO Q6H PRN PRN Reason: Moderate Pain 4-6 Zolpidem Tartrate (Ambien) 5 mg PO HSPRN PRN PRN Reason: Insomnia Zolpidem Tartrate (Ambien) 5 mg PO HSPRN PRN PRN Reason: Insomnia
[2018-03-11] MEDS: CEFAZOLIN/Water 2 GM/20 ML SYRINGE SLOW IVP SCH (01:05)
[2018-03-11] MEDS: Sodium Chloride 0.9% 1,000 ML IV SCH ×2 (04:57→17:10)
[2018-03-11 05:02] LABS: Hemoglobin 11.1 g/dL (12.0-16.0); Mean Corpuscular HGB CONC 32.9 g/dL (32.0-36.0); Mean Corpuscular Hemoglobin 30.5 pg (27.0-31.0); Mean Corpuscular Volume 92.6 fL (78.0-98.0); Mean Platelet Volume 7.7 fL (7.4-10.4); Platelet Count 254 thou/uL (130-400); RBC Distribution Width 12.3 % (11.5-14.5); Red Blood Cell (RBC) Count 3.65 mill/uL (4.20-5.40); White Blood Cell (WBC) Count 19.9 thou/uL (4.8-10.8)
[2018-03-11] MEDS: HYDROcodone/Acetaminophen 7.5/325 mg Tablet PO PRN ×2 (05:20→17:50)
[2018-03-11] MEDS: Ondansetron HCl/PF 4 MG/2 ML Vial IVP PRN (06:56)
[2018-03-11] MEDS: Ferrous Gluconate 324 MG TAB PO SCH ×2 (08:02→19:53)
[2018-03-11] MEDS: Senokot S 8.6-50 MG TAB PO SCH ×2 (08:02→19:53)
[2018-03-11] MEDS: Famotidine 20 MG TAB PO SCH (08:02)
[2018-03-11] MEDS: Fish Oil 1,000 MG CAP PO SCH (08:02)
[2018-03-11] MEDS: Multivitamin W/ Minerals 1 TAB PO SCH (08:02)
[2018-03-11] MEDS: Aspirin 81 mg Enteric Coated Tablet PO SCH ×2 (08:03→19:52)
[2018-03-11] MEDS: Bisoprolol Fumarate/HCTZ 5 mg/6.25 mg Tablet PO SCH (08:03)
[2018-03-11] MEDS: Amlodipine 5 mg/Benazepril 20 mg CAP PO SCH (09:00)
[2018-03-11] MEDS ORDERED: Amlodipine 5 mg/Benazepril 20 mg CAP PO SCH (09:00)
[2018-03-11] MEDS: Atorvastatin Calcium 20 MG TAB PO SCH (19:53)
[2018-03-11] MEDS: Doxazosin Mesylate 4 MG TAB PO SCH (19:53)
--- NOTE | 2018-03-11 22:41 | PDOC.PN ---
- Subjective Encounter Start Date: 03/11/18 Encounter Start Time: 14:30 Patient seen and examined for med mngt. Some nausea earlier. BP on lower side per RN.No new complaints. No overnight events - Objective MAR Reviewed: Yes Vital Signs & Weight: Vital Signs (12 hours) Temp Pulse Resp BP BP Pulse Ox 03/11/18 20:00 99 F 74 16 92/58 L 95 03/11/18 19:52 95 03/11/18 16:05 98.4 F 80 16 98/64 90 L Weight Admit Weight 200 lb Weight 200 lb I&O: 03/10/18 03/11/18 03/12/18 06:59 06:59 06:59 Intake Total 2500 Output Total 1125 Balance 1375 Result Diagrams: 03/11/18 04:37 Phys Exam - Physical Examination Constitutional: NAD Respiratory: no wheezing, no rhonchi Cardiovascular: RRR, no rub Gastrointestinal: soft, non-tender, positive bowel sounds Musculoskeletal: no edema Neurological: moves all 4 limbs Dx/Plan - Plan DVT proph w/SCDs IMPRESSION: 1. HTN - BP on lower side 2. Obesity BMI 39.1 3. Gout 4. CKD 2 5. Chronic leucocytosis PLAN: Cont current dose of Ziac and Lotrel with holding parameters Cont other meds as below Review of Systems - Review of Systems Cardiovascular: negative: chest pain, palpitations, orthopnea, paroxysmal nocturnal dyspnea, edema, light headedness, other Gastrointestinal: negative: Nausea, Vomiting, Abdominal Pain, Diarrhea, Constipation, Melena, Hematochezia, Other - Medications/Allergies Allergies/Adverse Reactions: Allergies Allergy/AdvReac Type Severity Reaction Status Date / Time Sulfa (Sulfonamide Allergy Hives Verified 03/09/18 10:06 Antibiotics) Medications: Current Medications Acetaminophen (Tylenol) 650 mg PO Q4H PRN PRN Reason: [place]/ T > 101F; Mild Pain (1-3) Hydrocodone Bitart/Acetaminophen ([place] 7.5/325) 1 tab PO Q4H PRN PRN Reason: Mild Pain (1-3) Last Admin: 03/11/18 05:20 Dose: 1 tab Hydrocodone Bitart/Acetaminophen ([place] 7.5/325) 2 tab PO Q4H PRN PRN Reason: Moderate Pain (4-6) Last Admin: 03/11/18 17:50 Dose: 2 tab Allopurinol (Zyloprim) 100 mg PO DAILYPRN PRN PRN Reason: GOUT Amlodipine/Benazepril HCl (Lotrel 5/20) 1 cap PO DAILY [facility] Last Admin: 03/11/18 09:00 Dose: Not Given Aspirin (Ecotrin) 81 mg PO BID [facility] Last Admin: 03/11/18 19:52 Dose: 81 mg Atorvastatin Calcium (Lipitor) 20 mg PO HS [facility] Last Admin: 03/11/18 19:53 Dose: 20 mg Bisoprolol Fumarate/HCTZ ([place] 5-6.25) 1 tab PO DAILY [facility] Last Admin: 03/11/18 08:03 Dose: 1 tab Diphenhydramine HCl (Benadryl) 25 mg PO Q6H PRN PRN Reason: Itching Doxazosin Mesylate (Cardura) 4 mg PO HS [facility] Last Admin: 03/11/18 19:53 Dose: Not Given Famotidine (Pepcid) 20 mg PO QAM [facility] Last Admin: 03/11/18 08:02 Dose: 20 mg Fentanyl (Sublimaze) 50 mcg IV Q1H PRN PRN Reason: BREAKTHROUGH PAIN Ferrous Gluconate (Fergon) 324 mg PO BID [facility] Last Admin: 03/11/18 19:53 Dose: 324 mg Fish Oil (Fish Oil) 1,000 mg PO DAILY [facility] Last Admin: 03/11/18 08:02 Dose: 1,000 mg Sodium Chloride (Normal Saline 0.9%) 1,000 mls @ 100 mls/hr IV .Q10H [facility] Last Admin: 03/11/18 17:10 Dose: Not Given Ropivacaine 250 ml/ Device 250 mls @ 0 mls/hr NERVE BLCK INF [facility] Last Admin: 03/11/18 14:21 Dose: 250 mls Iron/Minerals/Multivitamins (Theragran M) 1 tab PO DAILY [facility] Last Admin: 03/11/18 08:02 Dose: 1 tab Ketorolac Tromethamine (Toradol) 15 mg IVP Q6H PRN PRN Reason: Moderate Pain (4-6) Stop: 03/13/18 10:15 Montelukast Sodium (Singulair) 10 mg PO DAILYPRN PRN PRN Reason: Allergies Ondansetron HCl (Zofran) 4 mg IVP Q6H PRN PRN Reason: Nausea/Vomiting Last Admin: 03/11/18 06:56 Dose: 4 mg Promethazine HCl (Phenergan) 12.5 mg IM Q4H PRN PRN Reason: Nausea Senna/Docusate Sodium (Senokot S) 2 tab PO BID [facility] Last Admin: 03/11/18 19:53 Dose: 2 tab Sodium Chloride (Flush - Normal Saline) 10 ml IVF PRN PRN PRN Reason: Saline Flush Tramadol HCl (Ultram) 50 mg PO Q6H PRN PRN Reason: Mild Pain (1-3) Tramadol HCl (Ultram) 100 mg PO Q6H PRN PRN Reason: Moderate Pain 4-6 Zolpidem Tartrate (Ambien) 5 mg PO HSPRN PRN PRN Reason: Insomnia
[2018-03-12] MEDS: HYDROcodone/Acetaminophen 7.5/325 mg Tablet PO PRN ×5 (00:46→22:22)
[2018-03-12] MEDS: Sodium Chloride 0.9% 1,000 ML IV SCH ×2 (00:47→21:48)
[2018-03-12 05:15] LABS: Hemoglobin 10.3 g/dL (12.0-16.0); Mean Corpuscular HGB CONC 31.7 g/dL (32.0-36.0); Mean Corpuscular Hemoglobin 29.8 pg (27.0-31.0); Mean Corpuscular Volume 94.1 fL (78.0-98.0); Mean Platelet Volume 8.2 fL (7.4-10.4); Platelet Count 230 thou/uL (130-400); RBC Distribution Width 12.4 % (11.5-14.5); Red Blood Cell (RBC) Count 3.45 mill/uL (4.20-5.40); White Blood Cell (WBC) Count 16.8 thou/uL (4.8-10.8)
[2018-03-12] MEDS: Senokot S 8.6-50 MG TAB PO SCH ×2 (08:38→22:18)
[2018-03-12] MEDS: Famotidine 20 MG TAB PO SCH (08:38)
[2018-03-12] MEDS: Aspirin 81 mg Enteric Coated Tablet PO SCH ×2 (08:38→22:18)
[2018-03-12] MEDS: Fish Oil 1,000 MG CAP PO SCH (08:38)
[2018-03-12] MEDS: Multivitamin W/ Minerals 1 TAB PO SCH (08:38)
[2018-03-12] MEDS: Ferrous Gluconate 324 MG TAB PO SCH ×2 (08:39→22:18)
[2018-03-12] MEDS: Bisoprolol Fumarate/HCTZ 5 mg/6.25 mg Tablet PO SCH (08:43)
[2018-03-12] MEDS: Amlodipine 5 mg/Benazepril 20 mg CAP PO SCH (08:43)
[2018-03-12] MEDS ORDERED: Furosemide 20 MG/2 ML VIAL SLOW IVP SCH (18:15)
--- NOTE | 2018-03-12 19:20 | RAD ---
CHEST ONE VIEW: 03/12/18 HISTORY: Dyspnea. COMPARISON: 03/09/18. FINDINGS: The cardiac silhouette is magnified and partially obscured by increasing patchy bibasilar infiltrates . Pulmonary vasculature is engorged with patchy bilateral perihilar infiltrates. Mediastinum is midli ne with aortic calcification. No evidence of pneumothorax. IMPRESSION: Developing pulmonary edema. Atherosclerosis. POS: [facility]
[2018-03-12 19:31] LABS: Anion Gap 11 mmol/L (10-20); BUN (Urea Nitrogen) 20 mg/dL (9.8-20.1); Calc. Creatinine Clearance 102 mL/min (70-130); Calcium 8.2 mg/dL (7.8-10.44); Carbon Dioxide 28 mmol/L (23-31); Chloride 103 mmol/L (98-107); Estimated GFR-MDRD 84; Glucose 161 mg/dL (83-110); Magnesium 1.8 mg/dL (1.6-2.6); Potassium 4.3 mmol/L (3.5-5.1); Sodium 138 mmol/L (136-145)
[2018-03-12 19:36] LABS: Troponin I 0.067 ng/mL (< 0.028)
[2018-03-12] MEDS ORDERED: Nitroglycerin 2% Ointment 1 INCH/1 GM Packet TOP PRN (20:42)
--- NOTE | 2018-03-12 20:44 | PDOC.PN ---
- Subjective Encounter Start Date: 03/12/18 Encounter Start Time: 20:30 Patient seen and examined for resp distress. BP on lower side earlier - IVF was restarted. No overnight events - Objective MAR Reviewed: Yes Vital Signs & Weight: Vital Signs (12 hours) Temp Pulse Resp BP BP Pulse Ox 03/12/18 20:19 98.9 F 98 20 194/68 H 92 L 03/12/18 19:15 92 16 89 L 03/12/18 15:45 98 F 85 18 105/65 92 L 03/12/18 11:13 98.3 F 73 18 109/68 96 Weight Admit Weight 200 lb Weight 200 lb I&O: 03/11/18 03/12/18 03/13/18 06:59 06:59 06:59 Intake Total 2500 500 Output Total 1125 Balance 1375 500 Result Diagrams: 03/12/18 04:07 03/12/18 19:10 Phys Exam - Physical Examination Constitutional: NAD Respiratory: no wheezing Bibasilar rales with scat rhonchi Cardiovascular: RRR, no rub Gastrointestinal: soft, positive bowel sounds Musculoskeletal: no edema Neurological: moves all 4 limbs Dx/Plan - Plan DVT proph w/SCDs IMPRESSION: 1. Resp distress due to volume overload 2. HTN - home BP meds on hold 3. Gout 4. CKD 2 5. Chronic leucocytosis/Obesity BMI 39.1 PLAN: IV Lasix 40 mg x 1 [place] [facility] IVF Cont current dose of Ziac and Lotrel with holding parameters Cont other meds as below Review of Systems - Review of Systems Cardiovascular: negative: chest pain, palpitations, orthopnea, paroxysmal nocturnal dyspnea, edema, light headedness, other Gastrointestinal: negative: Nausea, Vomiting, Abdominal Pain, Diarrhea, Constipation, Melena, Hematochezia, Other - Medications/Allergies Allergies/Adverse Reactions: Allergies Allergy/AdvReac Type Severity Reaction Status Date / Time Sulfa (Sulfonamide Allergy Hives Verified 03/09/18 10:06 Antibiotics) Medications: Current Medications Acetaminophen (Tylenol) 650 mg PO Q4H PRN PRN Reason: [place]/ T > 101F; Mild Pain (1-3) Hydrocodone Bitart/Acetaminophen ([place] 7.5/325) 1 tab PO Q4H PRN PRN Reason: Mild Pain (1-3) Last Admin: 03/12/18 17:28 Dose: 1 tab Hydrocodone Bitart/Acetaminophen ([place] 7.5/325) 2 tab PO Q4H PRN PRN Reason: Moderate Pain (4-6) Last Admin: 03/12/18 00:46 Dose: 2 tab Albuterol/Ipratropium (Duoneb) 3 ml NEB [id number] [facility] Last Admin: 03/12/18 19:15 Dose: 3 ml Allopurinol (Zyloprim) 100 mg PO DAILYPRN PRN PRN Reason: GOUT Amlodipine/Benazepril HCl (Lotrel 5/20) 1 cap PO DAILY [facility] Last Admin: 03/12/18 08:43 Dose: Not Given Aspirin (Ecotrin) 81 mg PO BID [facility] Last Admin: 03/12/18 08:38 Dose: 81 mg Atorvastatin Calcium (Lipitor) 20 mg PO HS [facility] Last Admin: 03/11/18 19:53 Dose: 20 mg Bisoprolol Fumarate/HCTZ ([place] 5-6.25) 1 tab PO DAILY [facility] Last Admin: 03/12/18 08:43 Dose: Not Given Diphenhydramine HCl (Benadryl) 25 mg PO Q6H PRN PRN Reason: Itching Doxazosin Mesylate (Cardura) 4 mg PO HS [facility] Famotidine (Pepcid) 20 mg PO QAM [facility] Last Admin: 03/12/18 08:38 Dose: 20 mg Fentanyl (Sublimaze) 50 mcg IV Q1H PRN PRN Reason: BREAKTHROUGH PAIN Ferrous Gluconate (Fergon) 324 mg PO BID [facility] Last Admin: 03/12/18 08:39 Dose: 324 mg Fish Oil (Fish Oil) 1,000 mg PO DAILY [facility] Last Admin: 03/12/18 08:38 Dose: 1,000 mg Furosemide (Lasix) 40 mg SLOW IVP ONE [facility] Ropivacaine 250 ml/ Device 250 mls @ 0 mls/hr NERVE BLCK INF [facility] Last Admin: 03/11/18 14:21 Dose: 250 mls Iron/Minerals/Multivitamins (Theragran M) 1 tab PO DAILY [facility] Last Admin: 03/12/18 08:38 Dose: 1 tab Ketorolac Tromethamine (Toradol) 15 mg IVP Q6H PRN PRN Reason: Moderate Pain (4-6) Stop: 03/13/18 10:15 Last Admin: 10/18/18 05:18 Dose: 15 mg Montelukast Sodium (Singulair) 10 mg PO DAILYPRN PRN PRN Reason: Allergies Nitroglycerin (Nitro-Bid 2% Ointment) 0.5 inch TOP Q8HR PRN PRN Reason: SBP Greater Than 180 Ondansetron HCl (Zofran) 4 mg IVP Q6H PRN PRN Reason: Nausea/Vomiting Last Admin: 03/11/18 06:56 Dose: 4 mg Promethazine HCl (Phenergan) 12.5 mg IM Q4H PRN PRN Reason: Nausea Senna/Docusate Sodium (Senokot S) 2 tab PO BID [facility] Last Admin: 03/12/18 08:38 Dose: 2 tab Sodium Chloride (Flush - Normal Saline) 10 ml IVF PRN PRN PRN Reason: Saline Flush Tramadol HCl (Ultram) 50 mg PO Q6H PRN PRN Reason: Mild Pain (1-3) Tramadol HCl (Ultram) 100 mg PO Q6H PRN PRN Reason: Moderate Pain 4-6 Zolpidem Tartrate (Ambien) 5 mg PO HSPRN PRN PRN Reason: Insomnia
[2018-03-12] MEDS ORDERED: Furosemide 40 MG/4 ML VIAL SLOW IVP SCH (21:00)
[2018-03-12] MEDS: Atorvastatin Calcium 20 MG TAB PO SCH (22:18)
[2018-03-12] MEDS: Doxazosin Mesylate 4 MG TAB PO SCH (22:20)
[2018-03-12 22:42] LABS: Troponin I 0.162 ng/mL (< 0.028)
[2018-03-13] MEDS: traMADol HCl 50 MG TAB PO PRN ×2 (01:54→14:45)
[2018-03-13 07:44] LABS: #Eosinphils 0.2 thou/uL (0.0-0.7); #Lymphocytes 2.9 thou/uL (1.20-3.40); #Monocytes 1.4 thou/uL (0.11-0.59); #Neutrophils 13.2 thou/uL (1.40-6.50); %Basophils 0.1 % (0.0-1.0); %Eosinophils 1.2 % (0.0-10.0); %Lymphocytes 16.3 % (21.0-51.0); %Monocytes 7.7 % (0.0-10.0); %Neutrophils 74.7 % (42.0-75.0); Hemoglobin 9.9 g/dL (12.0-16.0); Mean Corpuscular HGB CONC 32.8 g/dL (32.0-36.0); Mean Corpuscular Hemoglobin 30.3 pg (27.0-31.0); Mean Corpuscular Volume 92.4 fL (78.0-98.0); Mean Platelet Volume 7.3 fL (7.4-10.4); Platelet Count 229 thou/uL (130-400); RBC Distribution Width 12.2 % (11.5-14.5); Red Blood Cell (RBC) Count 3.26 mill/uL (4.20-5.40); White Blood Cell (WBC) Count 17.7 thou/uL (4.8-10.8)
[2018-03-13] MEDS ORDERED: Furosemide 20 MG/2 ML VIAL SLOW IVP SCH (07:45)
[2018-03-13 08:25] LABS: Anion Gap 13 mmol/L (10-20); BUN (Urea Nitrogen) 14 mg/dL (9.8-20.1); Calc. Creatinine Clearance 98 mL/min (70-130); Calcium 8.1 mg/dL (7.8-10.44); Carbon Dioxide 29 mmol/L (23-31); Chloride 98 mmol/L (98-107); Estimated GFR-MDRD 80; Glucose 145 mg/dL (83-110); Phosphorus 2.4 mg/dL (2.3-4.7); Potassium 3.9 mmol/L (3.5-5.1); Sodium 136 mmol/L (136-145)
[2018-03-13 08:41] LABS: Troponin I 0.138 ng/mL (< 0.028)
[2018-03-13] MEDS: Famotidine 20 MG TAB PO SCH (08:41)
[2018-03-13] MEDS: Senokot S 8.6-50 MG TAB PO SCH ×2 (08:41→20:36)
[2018-03-13] MEDS: Fish Oil 1,000 MG CAP PO SCH (08:41)
[2018-03-13] MEDS: Ferrous Gluconate 324 MG TAB PO SCH ×2 (08:41→20:37)
[2018-03-13] MEDS: Aspirin 81 mg Enteric Coated Tablet PO SCH ×2 (08:41→20:37)
[2018-03-13] MEDS: Bisoprolol Fumarate/HCTZ 5 mg/6.25 mg Tablet PO SCH (08:42)
--- NOTE | 2018-03-13 08:53 | RAD ---
PORTABLE AP CHEST X-RAY: 03/13/2018 HISTORY: Shortness of breath. COMPARISON: 03/12/2018 FINDINGS: There is increased bilateral interstitial and alveolar opacities, greater at the lung bases, which ma y be related to either pulmonary edema or possibly an infectious process. An atypical infection proc ess cannot be excluded. Given the differences in technique, the chest is overall similar to the prio r exam. The cardiac silhouette is stable in size, and there is mild pulmonary vascular congestion. No other interval change. IMPRESSION: Stable chest. POS: [facility]
[2018-03-13] MEDS: HYDROcodone/Acetaminophen 7.5/325 mg Tablet PO PRN ×2 (10:43→20:36)
[2018-03-13] MEDS: Amlodipine 5 mg/Benazepril 20 mg CAP PO SCH (10:44)
[2018-03-13] MEDS: Multivitamin W/ Minerals 1 TAB PO SCH (10:44)
[2018-03-13] MEDS: Furosemide 20 MG/2 ML VIAL SLOW IVP SCH (14:38)
[2018-03-13] MEDS: Atorvastatin Calcium 20 MG TAB PO SCH (20:36)
[2018-03-13] MEDS: Doxazosin Mesylate 4 MG TAB PO SCH (20:37)
--- NOTE | 2018-03-13 22:39 | PDOC.PN ---
- Subjective Encounter Start Date: 03/13/18 Encounter Start Time: 08:30 Patient seen and examined for med mngt. Feeling better. No new complaints. No overnight events - Objective MAR Reviewed: Yes Vital Signs & Weight: Vital Signs (12 hours) Temp Pulse Resp BP Pulse Ox 03/13/18 22:36 66 20 03/13/18 19:51 98 F 78 20 112/66 94 L 03/13/18 18:07 78 20 98 03/13/18 16:08 97.9 F 76 18 140/68 95 03/13/18 14:28 77 20 94 L Weight Admit Weight 200 lb Weight 200 lb I&O: 03/12/18 03/13/18 03/14/18 06:59 06:59 06:59 Intake Total 500 600 240 Output Total 1850 1550 Balance 500 -1250 -1310 Result Diagrams: 03/13/18 07:33 03/14/18 04:37 Additional Labs: Laboratory Tests 03/12/18 03/12/18 03/13/18 19:10 22:11 07:56 Troponin I 0.067 H 0.162 H 0.138 H EKG Reviewed by me: Yes (SR) Phys Exam - Physical Examination Constitutional: NAD Respiratory: no wheezing, no rhonchi Some bibasilar rales Cardiovascular: RRR, no rub Gastrointestinal: soft, positive bowel sounds Neurological: moves all 4 limbs Dx/Plan - Plan DVT proph w/SCDs IMPRESSION: 1. Resp distress due to volume overload - improving 2. HTN 3. Gout 4. CKD 2 5. Elevated troponins due to volume overload/demand ischemia/Chronic leucocytosis/Obesity BMI 39.1 PLAN: Cont IV Lasix Cont home BP meds Cont current dose of Ziac and Lotrel with holding parameters Cont other meds as below Review of Systems - Review of Systems Cardiovascular: orthopnea. negative: chest pain, palpitations, paroxysmal nocturnal dyspnea, edema, light headedness, other Gastrointestinal: negative: Nausea, Vomiting, Abdominal Pain, Diarrhea, Constipation, Melena, Hematochezia, Other - Medications/Allergies Allergies/Adverse Reactions: Allergies Allergy/AdvReac Type Severity Reaction Status Date / Time Sulfa (Sulfonamide Allergy Hives Verified 03/09/18 10:06 Antibiotics) Medications: Current Medications Acetaminophen (Tylenol) 650 mg PO Q4H PRN PRN Reason: [place]/ T > 101F; Mild Pain (1-3) Hydrocodone Bitart/Acetaminophen ([place] 7.5/325) 1 tab PO Q4H PRN PRN Reason: Mild Pain (1-3) Last Admin: 03/13/18 10:43 Dose: 1 tab Hydrocodone Bitart/Acetaminophen ([place] 7.5/325) 2 tab PO Q4H PRN PRN Reason: Moderate Pain (4-6) Last Admin: 03/13/18 20:36 Dose: 2 tab Albuterol/Ipratropium (Duoneb) 3 ml NEB [id number] [facility] Last Admin: 03/13/18 22:36 Dose: 3 ml Allopurinol (Zyloprim) 100 mg PO DAILYPRN PRN PRN Reason: GOUT Amlodipine/Benazepril HCl (Lotrel 5/20) 1 cap PO DAILY [facility] Last Admin: 03/13/18 10:44 Dose: 1 cap Aspirin (Ecotrin) 81 mg PO BID [facility] Last Admin: 03/13/18 20:37 Dose: 81 mg Atorvastatin Calcium (Lipitor) 20 mg PO HS [facility] Last Admin: 03/13/18 20:36 Dose: 20 mg Bisoprolol Fumarate/HCTZ (Ziac 5-6.25) 1 tab PO DAILY [facility] Last Admin: 03/13/18 08:42 Dose: 1 tab Diphenhydramine HCl (Benadryl) 25 mg PO Q6H PRN PRN Reason: Itching Doxazosin Mesylate (Cardura) 4 mg PO HS [facility] Last Admin: 03/13/18 20:37 Dose: 4 mg Famotidine (Pepcid) 20 mg PO QAM [facility] Last Admin: 03/13/18 08:41 Dose: 20 mg Fentanyl (Sublimaze) 50 mcg IV Q1H PRN PRN Reason: BREAKTHROUGH PAIN Ferrous Gluconate (Fergon) 324 mg PO BID [facility] Last Admin: 03/13/18 20:37 Dose: 324 mg Fish Oil (Fish Oil) 1,000 mg PO DAILY [facility] Last Admin: 03/13/18 08:41 Dose: 1,000 mg Furosemide (Lasix) 20 mg SLOW IVP 0600,1400 [facility] Last Admin: 03/13/18 14:38 Dose: 20 mg Ropivacaine 250 ml/ Device 250 mls @ 0 mls/hr NERVE BLCK INF [facility] Last Admin: 03/11/18 14:21 Dose: 250 mls Iron/Minerals/Multivitamins (Theragran M) 1 tab PO DAILY [facility] Last Admin: 03/13/18 10:44 Dose: 1 tab Montelukast Sodium (Singulair) 10 mg PO DAILYPRN PRN PRN Reason: Allergies Nitroglycerin (Nitro-Bid 2% Ointment) 0.5 inch TOP Q8HR PRN PRN Reason: SBP Greater Than 180 Ondansetron HCl (Zofran) 4 mg IVP Q6H PRN PRN Reason: Nausea/Vomiting Last Admin: 03/11/18 06:56 Dose: 4 mg Promethazine HCl (Phenergan) 12.5 mg IM Q4H PRN PRN Reason: Nausea Senna/Docusate Sodium (Senokot S) 2 tab PO BID [facility] Last Admin: 03/13/18 20:36 Dose: 2 tab Sodium Chloride (Flush - Normal Saline) 10 ml IVF PRN PRN PRN Reason: Saline Flush Tramadol HCl (Ultram) 50 mg PO Q6H PRN PRN Reason: Mild Pain (1-3) Tramadol HCl (Ultram) 100 mg PO Q6H PRN PRN Reason: Moderate Pain 4-6 Last Admin: 03/13/18 14:45 Dose: 100 mg Zolpidem Tartrate (Ambien) 5 mg PO HSPRN PRN PRN Reason: Insomnia
[2018-03-14] MEDS: HYDROcodone/Acetaminophen 7.5/325 mg Tablet PO PRN ×2 (01:15→11:14)
[2018-03-14] MEDS: Furosemide 20 MG/2 ML VIAL SLOW IVP SCH (05:02)
[2018-03-14 05:06] LABS: Anion Gap 9 mmol/L (10-20); BUN (Urea Nitrogen) 18 mg/dL (9.8-20.1); Calc. Creatinine Clearance 94 mL/min (70-130); Calcium 8.3 mg/dL (7.8-10.44); Carbon Dioxide 37 mmol/L (23-31); Chloride 94 mmol/L (98-107); Estimated GFR-MDRD 77; Glucose 110 mg/dL (83-110); Potassium 3.3 mmol/L (3.5-5.1); Sodium 137 mmol/L (136-145)
--- NOTE | 2018-03-14 08:39 | EKG ---
Test Reason : STAT Blood Pressure : / mmHG Vent. Rate : 093 BPM Atrial Rate : 093 BPM P-R Int : 184 ms QRS Dur : 088 ms QT Int : 360 ms P-R-T Axes : 064 025 008 degrees QTc Int : 447 ms Sinus rhythm with ST abnormality, possible digitalis effect Abnormal ECG When compared with ECG of 09-MAR-2018 10:38, No significant change was found Confirmed by ROYAL WATSON ([id number]) on 03/14/2018 8:39:36 AM Referred By: MAHIN Confirmed By:ORYAL WATSON
[2018-03-14] MEDS ORDERED: Furosemide 20 MG TAB PO SCH (09:00)
[2018-03-14] MEDS ORDERED: Potassium Chloride 20 MEQ TAB PO SCH (09:00)
[2018-03-14] MEDS: Senokot S 8.6-50 MG TAB PO SCH ×2 (09:01→21:06)
[2018-03-14] MEDS: Aspirin 81 mg Enteric Coated Tablet PO SCH ×2 (09:01→21:07)
[2018-03-14] MEDS: Multivitamin W/ Minerals 1 TAB PO SCH (09:01)
[2018-03-14] MEDS: Bisoprolol Fumarate/HCTZ 5 mg/6.25 mg Tablet PO SCH (09:02)
[2018-03-14] MEDS: Fish Oil 1,000 MG CAP PO SCH (09:02)
[2018-03-14] MEDS: Famotidine 20 MG TAB PO SCH (09:02)
[2018-03-14] MEDS: Amlodipine 5 MG TAB PO SCH (09:02)
[2018-03-14] MEDS: Ferrous Gluconate 324 MG TAB PO SCH ×2 (09:03→21:07)
[2018-03-14] MEDS ORDERED: Polyethylene Glycol 3350 17 GM Packet PO SCH (09:15)
[2018-03-14] MEDS: Ondansetron HCl/PF 4 MG/2 ML Vial IVP PRN (15:30)
[2018-03-14] MEDS: Potassium Chloride 20 MEQ TAB PO SCH (16:44)
[2018-03-14] MEDS: traMADol HCl 50 MG TAB PO PRN (19:15)
--- NOTE | 2018-03-14 19:53 | PDOC.PN ---
- Subjective Encounter Start Date: 03/14/18 Encounter Start Time: 09:00 Patient seen and examined for med mngt. SOB improving. No new complaints. No overnight events - Objective MAR Reviewed: Yes Vital Signs & Weight: Vital Signs (12 hours) Temp Pulse Resp BP BP BP Pulse Ox 03/14/18 16:06 99.3 F 86 18 99/47 L 93 L 03/14/18 11:19 97.7 F 82 18 118/76 95 03/14/18 11:16 70 16 94 L 03/14/18 10:07 03/14/18 09:02 98 127/72 03/14/18 08:59 98.3 F 98 18 127/72 94 L Pulse Ox 03/14/18 16:06 03/14/18 11:19 03/14/18 11:16 03/14/18 10:07 88 L 03/14/18 09:02 03/14/18 08:59 Weight Admit Weight 200 lb Weight 200 lb I&O: 03/13/18 03/14/18 03/15/18 06:59 06:59 06:59 Intake Total 600 960 600 Output Total 1850 2350 850 Balance -1250 -1390 -250 Result Diagrams: 03/13/18 07:33 03/15/18 05:26 Phys Exam - Physical Examination Constitutional: NAD Respiratory: no wheezing, no rhonchi few bibasilar rales Cardiovascular: RRR, no rub Gastrointestinal: soft, non-tender, positive bowel sounds Musculoskeletal: no edema Dx/Plan - Plan DVT proph w/SCDs IMPRESSION: 1. Resp distress due to volume overload - improving/ Suspected diastolic HF 2. HTN 3. Gout 4. CKD 2 5. Hypokalemia 6. Elevated troponins due to volume overload/demand ischemia/Chronic leucocytosis/Obesity BMI 39.1 PLAN: Change Lasix to PO DC [place] in AM Wean O2 Replace Potassium Change Nebs to PRN AM labs Cont other meds as below Review of Systems - Review of Systems Constitutional: negative: fever, chills, sweats, weakness, malaise, other Cardiovascular: negative: chest pain, palpitations, orthopnea, paroxysmal nocturnal dyspnea, edema, light headedness, other - Medications/Allergies Allergies/Adverse Reactions: Allergies Allergy/AdvReac Type Severity Reaction Status Date / Time Sulfa (Sulfonamide Allergy Hives Verified 03/09/18 10:06 Antibiotics) Medications: Current Medications Acetaminophen (Tylenol) 650 mg PO Q4H PRN PRN Reason: [place]/ T > 101F; Mild Pain (1-3) Hydrocodone Bitart/Acetaminophen ([place] 7.5/325) 1 tab PO Q4H PRN PRN Reason: Mild Pain (1-3) Last Admin: 03/13/18 10:43 Dose: 1 tab Hydrocodone Bitart/Acetaminophen ([place] 7.5/325) 2 tab PO Q4H PRN PRN Reason: Moderate Pain (4-6) Last Admin: 03/14/18 11:14 Dose: 2 tab Albuterol/Ipratropium (Duoneb) 3 ml NEB [id number] PRN PRN Reason: SOB &/or Wheezing Allopurinol (Zyloprim) 100 mg PO DAILYPRN PRN PRN Reason: GOUT Amlodipine Besylate (Norvasc) 5 mg PO DAILY [facility] Last Admin: 03/14/18 09:02 Dose: 5 mg Aspirin (Ecotrin) 81 mg PO BID [facility] Last Admin: 03/14/18 09:01 Dose: 81 mg Atorvastatin Calcium (Lipitor) 20 mg PO HS [facility] Last Admin: 03/13/18 20:36 Dose: 20 mg Benazepril HCl (Lotensin) 20 mg PO DAILY [facility] Last Admin: 03/14/18 09:02 Dose: 20 mg Bisoprolol Fumarate/HCTZ ([place] 5-6.25) 1 tab PO DAILY [facility] Last Admin: 03/14/18 09:02 Dose: 1 tab Diphenhydramine HCl (Benadryl) 25 mg PO Q6H PRN PRN Reason: Itching Doxazosin Mesylate (Cardura) 4 mg PO HS [facility] Last Admin: 03/13/18 20:37 Dose: 4 mg Famotidine (Pepcid) 20 mg PO QAM [facility] Last Admin: 03/14/18 09:02 Dose: 20 mg Fentanyl (Sublimaze) 50 mcg IV Q1H PRN PRN Reason: BREAKTHROUGH PAIN Ferrous Gluconate (Fergon) 324 mg PO BID [facility] Last Admin: 03/14/18 09:03 Dose: 324 mg Fish Oil (Fish Oil) 1,000 mg PO DAILY [facility] Last Admin: 10/20/18 09:02 Dose: 1,000 mg Furosemide (Lasix) 20 mg PO DAILY [facility] Ropivacaine 250 ml/ Device 250 mls @ 0 mls/hr NERVE BLCK INF [facility] Last Admin: 03/11/18 14:21 Dose: 250 mls Iron/Minerals/Multivitamins (Theragran M) 1 tab PO DAILY [facility] Last Admin: 03/14/18 09:01 Dose: 1 tab Montelukast Sodium (Singulair) 10 mg PO DAILYPRN PRN PRN Reason: Allergies Nitroglycerin (Nitro-Bid 2% Ointment) 0.5 inch TOP Q8HR PRN PRN Reason: SBP Greater Than 180 Ondansetron HCl (Zofran) 4 mg IVP Q6H PRN PRN Reason: Nausea/Vomiting Last Admin: 03/14/18 15:30 Dose: 4 mg Polyethylene Glycol (Miralax) 17 gm PO DAILY [facility] Potassium Chloride (K-Dur) 20 meq PO BID[facility] Last Admin: 03/14/18 16:44 Dose: 20 meq Promethazine HCl (Phenergan) 12.5 mg IM Q4H PRN PRN Reason: Nausea Senna/Docusate Sodium (Senokot S) 2 tab PO BID [facility] Last Admin: 03/14/18 09:01 Dose: 2 tab Sodium Chloride (Flush - Normal Saline) 10 ml IVF PRN PRN PRN Reason: Saline Flush Tramadol HCl (Ultram) 50 mg PO Q6H PRN PRN Reason: Mild Pain (1-3) Tramadol HCl (Ultram) 100 mg PO Q6H PRN PRN Reason: Moderate Pain 4-6 Last Admin: 03/14/18 19:15 Dose: 100 mg Zolpidem Tartrate (Ambien) 5 mg PO HSPRN PRN PRN Reason: Insomnia
[2018-03-14] MEDS: Atorvastatin Calcium 20 MG TAB PO SCH (21:07)
[2018-03-14] MEDS: Doxazosin Mesylate 4 MG TAB PO SCH (21:07)
[2018-03-15] MEDS ORDERED: Bisacodyl 10 MG SUPP PR PRN (02:58)
[2018-03-15] MEDS: traMADol HCl 50 MG TAB PO PRN ×2 (04:07→10:08)
[2018-03-15 06:03] LABS: Anion Gap 14 mmol/L (10-20); BUN (Urea Nitrogen) 20 mg/dL (9.8-20.1); Calc. Creatinine Clearance 94 mL/min (70-130); Carbon Dioxide 35 mmol/L (23-31); Chloride 93 mmol/L (98-107); Estimated GFR-MDRD 77; Glucose 124 mg/dL (83-110); Magnesium 2.2 mg/dL (1.6-2.6); Potassium 4.1 mmol/L (3.5-5.1); Sodium 138 mmol/L (136-145)
[2018-03-15] MEDS: Bisoprolol Fumarate/HCTZ 5 mg/6.25 mg Tablet PO SCH (08:17)
[2018-03-15] MEDS: Fish Oil 1,000 MG CAP PO SCH (08:17)
[2018-03-15] MEDS: Famotidine 20 MG TAB PO SCH (08:17)
[2018-03-15] MEDS: Potassium Chloride 20 MEQ TAB PO SCH ×2 (08:17→16:16)
[2018-03-15] MEDS: Senokot S 8.6-50 MG TAB PO SCH (08:17)
[2018-03-15] MEDS: Multivitamin W/ Minerals 1 TAB PO SCH (08:18)
[2018-03-15] MEDS: Ferrous Gluconate 324 MG TAB PO SCH (08:18)
[2018-03-15] MEDS: Amlodipine 5 MG TAB PO SCH (08:18)
[2018-03-15] MEDS: Aspirin 81 mg Enteric Coated Tablet PO SCH (08:18)
[2018-03-15] MEDS: HYDROcodone/Acetaminophen 7.5/325 mg Tablet PO PRN ×2 (08:19→14:53)
[2018-03-15] MEDS ORDERED: Polyethylene Glycol 3350 17 GM Packet PO SCH (09:00)
[2018-03-15] MEDS ORDERED: Furosemide 20 MG TAB PO SCH (09:00)
[2018-03-15 16:34] VITALS: TEMP 97.4
[2018-03-15 17:02] VITALS: BP 101/62
--- NOTE | 2018-03-15 17:13 | PDOC.PN ---
- Subjective Encounter Start Date: 03/15/18 Encounter Start Time: 10:00 Patient seen and examined for med mngt. Still requiring O2. No new complaints. No overnight events - Objective MAR Reviewed: Yes Vital Signs & Weight: Vital Signs (12 hours) Temp Pulse Resp BP BP Pulse Ox Pulse Ox 03/15/18 17:01 101/62 03/15/18 16:33 97.4 F L 56 L 18 84/55 L 94 L 03/15/18 14:21 85 L 03/15/18 11:35 98.4 F 80 12 109/71 94 L 03/15/18 09:12 98.7 F 88 12 143/86 H 94 L 03/15/18 08:18 77 03/15/18 08:17 127/72 03/15/18 08:04 94 L 03/15/18 06:42 98.2 F 77 19 113/67 93 L Pulse Ox 03/15/18 17:01 03/15/18 16:33 03/15/18 14:21 93 L 03/15/18 11:35 03/15/18 09:12 03/15/18 08:18 03/15/18 08:17 03/15/18 08:04 03/15/18 06:42 Weight Admit Weight 200 lb Weight 200 lb I&O: 03/14/18 03/15/18 03/16/18 06:59 06:59 06:59 Intake Total 960 1320 600 Output Total 2350 1375 Balance -1390 -55 600 Result Diagrams: 03/13/18 07:33 03/15/18 05:26 Radiology Reviewed by me: Yes (CXR (03/14) - improving edema) Phys Exam - Physical Examination Constitutional: NAD Respiratory: no wheezing, no rales, no rhonchi Cardiovascular: RRR, no rub Gastrointestinal: soft, non-tender, positive bowel sounds Musculoskeletal: no edema Neurological: moves all 4 limbs Dx/Plan - Plan DVT proph w/SCDs IMPRESSION: 1. Resp distress due to volume overload - improving/ Suspected diastolic HF - acute on chronic 2. HTN 3. Gout 4. CKD 2 5. Hypokalemia 6. Elevated troponins due to volume overload/demand ischemia/Chronic leucocytosis/Obesity BMI 39.1 PLAN: Cont PO Lasix - Will stop Lasix at dc Bailey dced Home O2 setup Cont PRN Nebs Cont other meds as below Sleep study as outpt Review of Systems - Review of Systems Respiratory: negative: Cough, Dry, Shortness of Breath, Hemoptysis, SOB with Excertion, Pleuritic Pain, Sputum, Wheezing Cardiovascular: negative: chest pain, palpitations, orthopnea, paroxysmal nocturnal dyspnea, edema, light headedness, other - Medications/Allergies Allergies/Adverse Reactions: Allergies Allergy/AdvReac Type Severity Reaction Status Date / Time Sulfa (Sulfonamide Allergy Hives Verified 03/09/18 10:06 Antibiotics) Medications: Current Medications Acetaminophen (Tylenol) 650 mg PO Q4H PRN PRN Reason: [place]/ T > 101F; Mild Pain (1-3) Hydrocodone Bitart/Acetaminophen ([place] 7.5/325) 1 tab PO Q4H PRN PRN Reason: Mild Pain (1-3) Last Admin: 03/13/18 10:43 Dose: 1 tab Hydrocodone Bitart/Acetaminophen ([place] 7.5/325) 2 tab PO Q4H PRN PRN Reason: Moderate Pain (4-6) Last Admin: 03/15/18 14:53 Dose: 2 tab Albuterol/Ipratropium (Duoneb) 3 ml NEB [id number] PRN PRN Reason: SOB &/or Wheezing Allopurinol (Zyloprim) 100 mg PO DAILYPRN PRN PRN Reason: GOUT Amlodipine Besylate (Norvasc) 5 mg PO DAILY [facility] Last Admin: 03/15/18 08:18 Dose: 5 mg Aspirin (Ecotrin) 81 mg PO BID [facility] Last Admin: 03/15/18 08:18 Dose: 81 mg Atorvastatin Calcium (Lipitor) 20 mg PO HS [facility] Last Admin: 03/14/18 21:07 Dose: 20 mg Benazepril HCl (Lotensin) 20 mg PO DAILY [facility] Last Admin: 03/15/18 08:17 Dose: 20 mg Bisacodyl (Dulcolax) 10 mg [place] DAILYPRN PRN PRN Reason: Constipation Last Admin: 03/15/18 03:26 Dose: 10 mg Bisoprolol Fumarate/HCTZ ([place] 5-6.25) 1 tab PO DAILY [facility] Last Admin: 03/15/18 08:17 Dose: 1 tab Diphenhydramine HCl (Benadryl) 25 mg PO Q6H PRN PRN Reason: Itching Doxazosin Mesylate (Cardura) 4 mg PO HS [facility] Last Admin: 03/14/18 21:07 Dose: 4 mg Famotidine (Pepcid) 20 mg PO QAM [facility] Last Admin: 03/15/18 08:17 Dose: 20 mg Fentanyl (Sublimaze) 50 mcg IV Q1H PRN PRN Reason: BREAKTHROUGH PAIN Ferrous Gluconate (Fergon) 324 mg PO BID [facility] Last Admin: 03/15/18 08:18 Dose: 324 mg Fish Oil (Fish Oil) 1,000 mg PO DAILY [facility] Last Admin: 03/15/18 08:17 Dose: 1,000 mg Furosemide (Lasix) 20 mg PO DAILY [facility] Last Admin: 03/15/18 08:18 Dose: 20 mg Ropivacaine 250 ml/ Device 250 mls @ 0 mls/hr NERVE BLCK INF [facility] Last Admin: 03/11/18 14:21 Dose: 250 mls Iron/Minerals/Multivitamins (Theragran M) 1 tab PO DAILY [facility] Last Admin: 03/15/18 08:18 Dose: 1 tab Montelukast Sodium (Singulair) 10 mg PO DAILYPRN PRN PRN Reason: Allergies Nitroglycerin (Nitro-Bid 2% Ointment) 0.5 inch TOP Q8HR PRN PRN Reason: SBP Greater Than 180 Ondansetron HCl (Zofran) 4 mg IVP Q6H PRN PRN Reason: Nausea/Vomiting Last Admin: 03/14/18 15:30 Dose: 4 mg Polyethylene Glycol (Miralax) 17 gm PO DAILY [facility] Last Admin: 03/15/18 08:17 Dose: 17 gm Potassium Chloride (K-Dur) 20 meq PO BID[facility] Last Admin: 03/15/18 16:16 Dose: 20 meq Promethazine HCl (Phenergan) 12.5 mg IM Q4H PRN PRN Reason: Nausea Senna/Docusate Sodium (Senokot S) 2 tab PO BID [facility] Last Admin: 03/15/18 08:17 Dose: 2 tab Sodium Chloride (Flush - Normal Saline) 10 ml IVF PRN PRN PRN Reason: Saline Flush Tramadol HCl (Ultram) 50 mg PO Q6H PRN PRN Reason: Mild Pain (1-3) Tramadol HCl (Ultram) 100 mg PO Q6H PRN PRN Reason: Moderate Pain 4-6 Last Admin: 03/15/18 10:08 Dose: 100 mg Zolpidem Tartrate (Ambien) 5 mg PO HSPRN PRN PRN Reason: Insomnia
== END 2018-03-15 19:40 | disposition home or self-care (01) | DRG 469 ==
LOC: SDC 07:32 → SURG B 14:44
PROVIDERS: ADMIT Orthopaedic Surgery; ATTEND Orthopaedic Surgery
PROC: 0SRC0J9 Replacement of Right Knee Joint with Synthetic Substitute, Cemented, Open Approach (ICD-10-PCS; principal; 2018-03-10)
DX: M17.11 Unilateral primary osteoarthritis, right knee (principal); I50.33 Acute on chronic diastolic (congestive) heart failure; I13.0 Hypertensive heart and chronic kidney disease with heart failure and stage 1 through stage 4 chronic kidney disease, or unspecified chronic kidney disease; I24.8 Other forms of acute ischemic heart disease; E66.9 Obesity, unspecified; Z68.39 Body mass index [BMI] 39.0-39.9, adult; N18.2 Chronic kidney disease, stage 2 (mild); M10.9 Gout, unspecified; Z88.2 Allergy status to sulfonamides; K21.9 Gastro-esophageal reflux disease without esophagitis; J42 Unspecified chronic bronchitis; Z96.652 Presence of left artificial knee joint; E87.6 Hypokalemia
CPT/HCPCS: 36415; 71045; 71046; 80048; 81001; 83735; 83880; 84100; 84484; 85025; 85027; 85610; 85730; 86850; 86900; 86901; 93005; 93010; 94640; 94760; C1713; C1776; G8978-GP-CM; G8979-GP-CJ; J1100; J1885; J1940; J2001; J2250; J2405; J2704; J2795; J3010; J3370; J7050; J7620